=== PATIENT | male | born 1955 | race Caucasian/White ===

== ENCOUNTER → 2024-01-07 11:30 | Outpatient (REF) | payer OTHER, SELFPAY | LOC: RCS 11:30 | PROVIDERS: ATTENDING PHYSICIAN Internal Medicine Cardiovascular Disease; FAMILY PHYSICIAN Family Medicine | DX: I42.9 Cardiomyopathy, unspecified (principal) | CPT/HCPCS: 93306 ==

== ENCOUNTER 2024-07-02 10:45 | Outpatient (RCR) | payer OTHER, SELFPAY | END 2024-07-03 10:16 | disposition home or self-care (01) | LOC: PURB 10:45 | PROVIDERS: ATTENDING PHYSICIAN Internal Medicine Critical Care Medicine; FAMILY PHYSICIAN Family Medicine | DX: J43.9 Emphysema, unspecified (principal) | CPT/HCPCS: G0237; G0239 ==

== ENCOUNTER 2024-07-14 10:45 | Outpatient (RCR) | payer OTHER, SELFPAY | END 2024-08-03 09:19 | disposition home or self-care (01) | LOC: PURB 10:45 | PROVIDERS: ATTENDING PHYSICIAN Internal Medicine Critical Care Medicine; FAMILY PHYSICIAN Family Medicine | DX: J43.9 Emphysema, unspecified (principal) | CPT/HCPCS: G0239 ==

== ENCOUNTER 2024-07-27 07:08 | Day surgery (SDC) | payer OTHER, SELFPAY ==
[2024-07-27 08:21] VITALS: BMI 30.5
== END 2024-07-27 09:02 | disposition home or self-care (01) ==
LOC: CATH 07:08
PROVIDERS: ATTENDING PHYSICIAN Internal Medicine Cardiovascular Disease; FAMILY PHYSICIAN Family Medicine; OTHER PHYSICIAN Internal Medicine Cardiovascular Disease
DX: I48.0 Paroxysmal atrial fibrillation (principal); R55 Syncope and collapse; I42.9 Cardiomyopathy, unspecified; I25.10 Atherosclerotic heart disease of native coronary artery without angina pectoris; Z95.1 Presence of aortocoronary bypass graft; I44.7 Left bundle-branch block, unspecified; Z79.01 Long term (current) use of anticoagulants; Z79.899 Other long term (current) drug therapy; Z79.84 Long term (current) use of oral hypoglycemic drugs
CPT/HCPCS: 92960; 93005

== ENCOUNTER → 2024-10-27 14:17 | Outpatient (REF) | payer OTHER, SELFPAY | LOC: RAD 14:17 | PROVIDERS: ATTENDING PHYSICIAN Physician Assistant Medical; FAMILY PHYSICIAN Family Medicine | DX: M25.552 Pain in left hip (principal) | CPT/HCPCS: 73700 ==

== ENCOUNTER → 2024-12-24 12:57 | Outpatient (REF) | payer OTHER, SELFPAY | LOC: HWRAD 12:57 | PROVIDERS: ATTENDING PHYSICIAN Family Medicine | DX: F17.210 Nicotine dependence, cigarettes, uncomplicated (principal) | CPT/HCPCS: 71271 ==